=== PATIENT | female | born 1960 | race Caucasian/White ===

== ENCOUNTER 2020-11-29 17:00 | Outpatient (RCR) | payer BC | END 2020-12-04 | LOC: PT 17:00 | PROVIDERS: ATTEND Neurological Surgery | DX: M50.320 Other cervical disc degeneration, mid-cervical region, unspecified level (principal) ==

== ENCOUNTER 2020-12-20 13:00 | Outpatient (RCR) | payer BC | END 2021-01-03 | LOC: PT 13:00 | PROVIDERS: ATTEND Neurological Surgery | DX: M50.320 Other cervical disc degeneration, mid-cervical region, unspecified level (principal) ==

== ENCOUNTER → 2024-10-13 | Outpatient (REF) | payer BC | LOC: NM 08:46 | PROVIDERS: ATTEND Pain Medicine Interventional Pain Medicine | DX: R10.13 Epigastric pain (principal); R14.0 Abdominal distension (gaseous) | CPT/HCPCS: 78264; A9541 ==

== ENCOUNTER → 2024-12-28 | Outpatient (REF) | payer BC ==
[~2024-12-28] MED LIST: FENTANYL CITRATE/PF 100MCG/2 ML INJ ONE; LIDOCAINE HCL 1% 30ML-PF VIAL ONE; MIDAZOLAM HCL 2 MG/2 ML VIAL ONE; SODIUM CHLORIDE 0.9% 250ML 250 ML ONE
[2024-12-28 08:34] LABS: BASOPHILS % 0.7 % (0.0-1.0); EOSINOPHILS % 2.4 % (0.0-6.0); LYMPHOCYTES % 24.1 % (18.0-39.1); MONOCYTES % 14.3 % (4.4-11.3); NEUTROPHILS % 58.3 % (38.7-80.0); RED CELL DISTRIBUTION WIDTH 13.2 % (11.7-14.4)
[2024-12-28 08:51] LABS: INR 0.91
[2024-12-28 08:54] LABS: EST GLOMERULAR FILTRATION RATE 102.0 ML/MIN (>=60)
== END ==
LOC: US 07:10
PROVIDERS: ATTEND Internal Medicine Gastroenterology
DX: E11.9 Type 2 diabetes mellitus without complications (principal); R93.3 Abnormal findings on diagnostic imaging of other parts of digestive tract; K76.0 Fatty (change of) liver, not elsewhere classified; R79.89 Other specified abnormal findings of blood chemistry; R76.8 Other specified abnormal immunological findings in serum; R11.0 Nausea; K21.00 Gastro-esophageal reflux disease with esophagitis, without bleeding; K44.9 Diaphragmatic hernia without obstruction or gangrene; Z68.27 Body mass index [BMI] 27.0-27.9, adult
CPT/HCPCS: 36415; 47000; 76942; 80053; 85025; 85610; 85730; 88307; J2003; J2250; J3010; J7050